=== PATIENT | female | born 1965 | race American Indian/Alaskan Native ===

== ENCOUNTER 2020-02-20 09:53 | Emergency (ER) | payer SELFPAY ==
[2020-02-20 11:46] VITALS: BP 170/114
--- NOTE | 2020-02-20 11:53 | Emergency Department Report ---
ED ENT HPI - General Chief complaint: Sore Throat Stated complaint: BODYACHE/SORETHOAT/EARACHE Time Seen by Provider: 02/20/20 11:43 Source: patient Mode of arrival: Ambulatory Limitations: No Limitations - History of Present Illness Initial comments: 54-year-old F [place] female smoker with past medical history of hypertension presents emerged department complaining of a 1 week history of noNE improving sinus pressure and congestion with irritation and mild coryza however no loss of taste or appetite no diarrhea no constipation and worried about a infection. She reports no hemoptysis no hematemesis no hematochezia. No chest pain or palpitations. No rashes. She has no hypertensive symptoms at current Quality: dull Consistency: constant Improves with: none Worsens with: none - Related Data Previous Rx's Medication Instructions Recorded Last Taken Type Amoxicillin/Potassium Clav 1 each PO BID #20 tablet 02/20/20 Unknown Rx [Augmentin 875-125 Tablet] Fluticasone [Flonase] 1 spray NS QDAY #1 bottle 02/20/20 Unknown Rx predniSONE [Deltasone] 20 mg PO QDAY #7 tab 02/20/20 Unknown Rx Allergies Allergy/AdvReac Type Severity Reaction Status Date / Time No Known Allergies Allergy Unverified 02/20/20 10:43 ED Dental HPI - General Chief complaint: Sore Throat Stated complaint: BODYACHE/SORETHOAT/EARACHE Time Seen by Provider: 02/20/20 11:43 Source: patient Mode of arrival: Ambulatory Limitations: No Limitations - Related Data Previous Rx's Medication Instructions Recorded Last Taken Type Amoxicillin/Potassium Clav 1 each PO BID #20 tablet 02/20/20 Unknown Rx [Augmentin 875-125 Tablet] Fluticasone [Flonase] 1 spray NS QDAY #1 bottle 02/20/20 Unknown Rx predniSONE [Deltasone] 20 mg PO QDAY #7 tab 02/20/20 Unknown Rx Allergies Allergy/AdvReac Type Severity Reaction Status Date / Time No Known Allergies Allergy Unverified 02/20/20 10:43 ED Review of Systems ROS: Stated complaint: BODYACHE/SORETHOAT/EARACHE Other details as noted in HPI Comment: All other systems reviewed and negative ED Past Medical Hx - Past Medical History Previous Medical History?: Yes Hx Hypertension: Yes - Social History Smoking Status: Current Some Day Smoker Substance Use Type: None - Medications Home Medications: Home Medications Medication Instructions Recorded Confirmed Last Taken Type Amoxicillin/Potassium Clav 1 each PO BID #20 tablet 02/20/20 Unknown Rx [Augmentin 875-125 Tablet] Fluticasone [Flonase] 1 spray NS QDAY #1 bottle 02/20/20 Unknown Rx predniSONE [Deltasone] 20 mg PO QDAY #7 tab 02/20/20 Unknown Rx ED Physical Exam - General Limitations: No Limitations General appearance: alert, in no apparent distress - Head Head exam: Present: atraumatic, normocephalic - Eye Eye exam: Present: normal appearance, PERRL Pupils: Present: normal accommodation - ENT ENT exam: Present: normal exam, normal orophraynx, mucous membranes moist, other (Nasal congestion left is greater than right with erythema to the turbinate with the yellow thick discharge and tenderness to percussion as well. Pharynx is clear small effusion on the left tympanic membrane) - Neck Neck exam: Present: normal inspection, full ROM - Respiratory Respiratory exam: Present: normal lung sounds bilaterally. Absent: respiratory distress - Cardiovascular Cardiovascular Exam: Present: regular rate, normal rhythm. Absent: systolic murmur, diastolic murmur, rubs, gallop - GI/Abdominal GI/Abdominal exam: Present: soft, normal bowel sounds - Extremities Exam Extremities exam: Present: normal inspection, normal capillary refill - Back Exam Back exam: Present: normal inspection. Absent: CVA tenderness (R), CVA tenderness (L) - Neurological Exam Neurological exam: Present: alert, oriented X3, CN II-XII intact - Psychiatric Psychiatric exam: Present: normal affect, normal mood - Skin Skin exam: Present: warm, dry, intact, normal color. Absent: rash ED Course Vital Signs 02/20/20 02/20/20 10:42 11:44 Temperature 97.9 F Pulse Rate 53 L 55 L Respiratory 20 18 Rate Blood Pressure 205/114 Blood Pressure 170/114 [Right] O2 Sat by Pulse 100 Oximetry Critical care attestation.: If time is entered above; I have spent that time in minutes in the direct care of this critically ill patient, excluding procedure time. ED Disposition Clinical Impression: Sinusitis, HTN (hypertension) Disposition: - TO HOME OR SELFCARE Is pt being admited?: No Does the pt Need Aspirin: No Condition: Stable Instructions: Sinusitis, Adult, [id number], Sinusitis, Adult, Upper Respiratory Infection, Adult, [id number], Hypertension (ED) Prescriptions: Amoxicillin/Potassium Clav [Augmentin 875-125 Tablet] 1 each PO BID #20 tablet predniSONE [Deltasone] 20 mg PO QDAY #7 tab Fluticasone [Flonase] 1 spray NS QDAY #1 bottle Referrals: APRIL FERNANDEZ MD [Primary Care Provider] - 3-5 Days
== END 2020-02-20 11:52 | disposition home or self-care (01) ==
LOC: ED 09:53
DX: J32.9 Chronic sinusitis, unspecified (principal); I10 Essential (primary) hypertension; F17.200 Nicotine dependence, unspecified, uncomplicated; Z79.899 Other long term (current) drug therapy
CPT/HCPCS: 99282